=== PATIENT | male | born 1980 | race Two or more races ===

== ENCOUNTER 2019-06-02 00:33 | Emergency (ER) | payer MEDICAID ==
[~2019-06-02] VITALS: Ht 175.3 cm; Wt 142.9 kg
[2019-06-02 04:38] VITALS: BP 177/103
[2019-06-02] MEDS ORDERED: ACETAMINOPHEN 325 MG TAB PO ONE (05:45)
[2019-06-02] MEDS ORDERED: METHOCARBAMOL 500 MG TAB PO ONE (05:45)
== END 2019-06-02 06:11 | disposition home or self-care (01) ==
LOC: ER 00:33
DX: R07.81 Pleurodynia (principal); M54.5 Low back pain; M19.012 Primary osteoarthritis, left shoulder; M54.2 Cervicalgia; I10 Essential (primary) hypertension; M25.512 Pain in left shoulder; Z87.81 Personal history of (healed) traumatic fracture; V48.5XXA Car driver injured in noncollision transport accident in traffic accident, initial encounter; Y93.I9 Activity, other involving external motion; Y92.488 Other paved roadways as the place of occurrence of the external cause; Y99.8 Other external cause status
CPT/HCPCS: 70450; 71101; 72125; 72131; 73030; 99284; L0120